=== PATIENT | male | born 1990 | race Caucasian/White ===

== ENCOUNTER 2018-10-07 00:31 | Emergency (ER) | payer OTHER ==
[~2018-10-07] VITALS: Ht 188 cm; Wt 99.8 kg
[2018-10-07 03:34] VITALS: BP 134/78
[2018-10-07] MEDS ORDERED: IBUPROFEN 800 MG TAB PO ONE (04:15)
== END 2018-10-07 04:20 | disposition home or self-care (01) ==
LOC: ER 00:43
DX: M25.531 Pain in right wrist (principal); M62.838 Other muscle spasm; Z13.89 Encounter for screening for other disorder; V49.9XXA Car occupant (driver) (passenger) injured in unspecified traffic accident, initial encounter; Y93.I9 Activity, other involving external motion; Y92.488 Other paved roadways as the place of occurrence of the external cause; Y99.8 Other external cause status
CPT/HCPCS: 73110